=== PATIENT | female | born 1995 | race Caucasian/White ===

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

== ENCOUNTER 2017-07-15 15:58 | Emergency (ER) | payer OTHER ==
[~2017-07-15] VITALS: Ht 160 cm; Wt 63.6 kg
[~2017-07-15 15:58] MED LIST: ADDERALL XR20 MG PO; MELATONIN3 MG PO; MINASTRIN PO; TAMIFLU 75MG75 MG PO
[2017-07-15 16:00] VITALS: TEMP 98.3
[2017-07-15] MEDS ORDERED: YAZ 28 3 MG-0.01 TAB PO (16:29)
[2017-07-15] MEDS ORDERED: DOXYCYCLINE 10100 MG PO (16:29)
[2017-07-15 17:53] VITALS: BP 134/70; PULSE 112
[2017-07-15] MEDS ORDERED: MEDROL 4MG DOSPA4 MG PO (17:55)
== END 2017-07-15 18:03 | disposition home or self-care (01) ==
LOC: COL.ER 15:58
DX: J20.9 Acute bronchitis, unspecified (principal); Z88.0 Allergy status to penicillin; Z88.1 Allergy status to other antibiotic agents